=== PATIENT | female | born 1980 | race Caucasian/White ===

== ENCOUNTER 2020-05-20 19:52 | Emergency (ER) | payer MEDICAID ==
[~2020-05-20] VITALS: Ht 165.1 cm; Wt 67.0 kg
[2020-05-20 20:05] VITALS: BP 138/73
--- NOTE | 2020-05-20 20:15 | NUR ---
Pt ambulatory to room with steady gait.
--- NOTE | 2020-05-20 21:05 | NUR ---
assumed care of pt at this time
[2020-05-20 21:07] LABS: BASOPHILS % (AUTO) 0 % (0-1); EOSINOPHILS % (AUTO) 1 % (1-7); LYMPHOCYTES % (AUTO) 29 % (22-44); MEAN CORPUSCULAR HEMOGLOBIN 31.2 pg (27.0-34.8); MEAN CORPUSCULAR HGB CONC 33.3 g/dL (32.4-35.8); MEAN PLATELET VOLUME 8.1 fL (7.4-10.4); MONOCYTES % (AUTO) 10 % (2-9); NEUTROPHILS % (AUTO) 60 % (42-75); PLATELET COUNT 279 x10^3/uL (130-400); RED BLOOD COUNT 4.04 x10^6/uL (3.82-5.3); RED CELL DISTRIBUTION WIDTH 13.8 % (9.6-15.2)
[2020-05-20 21:10] LABS: MD NO
[2020-05-20 21:12] LABS: ANION GAP 5 mmol/L (5-15); CALCIUM 8.6 mg/dL (8.5-10.1); CHLORIDE 106 mmol/L (98-107); CREATININE 1.01 mg/dL (0.55-1.02)
[2020-05-20] MEDS ORDERED: ACETAMINOPHEN 325 MG TABLET ONE (21:16)
[2020-05-20] MEDS ORDERED: KETOROLAC 30 MG/1 ML ONE (21:19)
[2020-05-20 21:21] LABS: MICROSCOPIC NOT IND
[2020-05-20] MEDS ORDERED: ACETAMINOPHEN 325 MG TABLET PO ONE (21:30)
[2020-05-20] MEDS ORDERED: KETOROLAC 30 MG/1 ML IM ONE (21:30)
--- NOTE | 2020-05-20 21:56 | NUR ---
JUANA AT POC DISCUSSED
[2020-05-20] MEDS ORDERED: NEOSPORIN OINT. PKT 1 PACKET ONE (22:58)
== END 2020-05-20 23:01 | disposition home or self-care (01) ==
LOC: ED 21:41
DX: M54.5 Low back pain (principal); L03.811 Cellulitis of head [any part, except face]; R20.2 Paresthesia of skin; Z76.0 Encounter for issue of repeat prescription; F17.200 Nicotine dependence, unspecified, uncomplicated; Z88.8 Allergy status to other drugs, medicaments and biological substances; Z88.3 Allergy status to other anti-infective agents
CPT/HCPCS: 36415; 80048; 81003; 85025; 96372; 99283; J1885